=== PATIENT | male | born 1965 | race Caucasian/White ===

== ENCOUNTER 2024-06-19 06:26 | Day surgery (SDC) | payer OTHER, SELFPAY ==
[2024-06-06 14:11] VITALS: BMI 26.5
--- NOTE | 2024-06-07 13:56 | PTCARENOTE ---
Patients 06/06 ECG abnomrla- reviewed by Dr. Gibson- no additional interventions required.
[2024-06-19] VITALS (7 sets, daily range): BP systolic 109–135; BP diastolic 71–115; BMI 26.5
[2024-06-19] MEDS: TYLENOL 1000 MG PO (07:42)
[2024-06-19] MEDS: NORMOSOL-R/PLASMALYTE-A 1000 IV (07:42)
[2024-06-19] MEDS: HEPARIN 5000 UNITS SC (07:45)
--- NOTE | 2024-06-19 10:15 | W.IMMPOSTOP ---
Surgical Immed Post Op Note
-
Primary Surgeon: Winifred
Assisting: Jose BARTLETT
Pre-op Diagnosis: Bilateral inguinal hernias
Post-op Diagnosis: Same
Procedure Performed: Robot assisted laparoscopic repair bilateral inguinal hernias
Anesthesia Type: GETA
Specimen / Cultures: None
Estimated Blood Loss: 10cc
Complications: None immediate
Operative Findings: Bilateral indirect defects, small cord lipoma right, large cord lipoma left, B/L XL MID 3D max
--- NOTE | 2024-06-19 10:21 | OR.RPT ---
Addendum entered and electronically signed by Marcel Vitale MD 06/19/24 12:56:
Addendum: The assistance of Jose BARTLETT was required due to the complexity of the procedure. During the procedure she assisted with retraction, resection, and closure of the wound.
Original Note:
Operative Report
Operative Report
Primary Surgeon: Winifred
Assisting: Jose BARTLETT
Pre-op Diagnosis: Bilateral inguinal hernias
Post-op Diagnosis: Same
Procedure Performed: Robot assisted laparoscopic repair bilateral inguinal hernias
Anesthesia Type: GETA
Specimen / Cultures: None
Estimated Blood Loss: 10cc
Complications: None immediate
Operative Findings: Bilateral indirect defects, small cord lipoma right, large cord lipoma left, B/L XL MID 3D max
Date of surgery: 06/19/24
Indications:� This 59M developed a symptomatic right inguinal hernia. On exam a contralateral hernia was identified. He asked that we fix both sides today. Robot assisted laparoscopic repair of left inguinal hernias was planned.
Description of procedure:� The patient was taken to the operating room and positioned into supine position. The patient�s abdomen was prepped and draped in standard sterile fashion. Horn placed. A time-out was completed verifying correct patient,
procedure, site, positioning, and implants and special equipment prior to beginning this procedure.
A stab incision was made in the left upper quadrant, a Veress needle was inserted and proper position was confirmed by aspiration and saline drop test. Following this, pneumoperitoneum was created with insufflation of carbon dioxide to 12 mmHg. Then
a 8mm robotic trocar was inserted above and to the left of the umbilicus. A laparoscope was inserted and the area of initial trocar entry and Veress needle placement were both inspected and no injuries were found. Two 8mm trocars were then placed
lateral to the rectus sheath under direct visualization.
Both inguinal regions were inspected and the median umbilical ligament, medial umbilical ligament, and lateral umbilical fold were identified. Attention was turned to the right groin. The peritoneum was incised transversely above the defect and a
flap was developed in the caudad direction. Az�s ligament was identified ultimately dissected to its junction with the iliac vein and the space of Retzius was developed bluntly. The dissection was continued inferiorly to the iliopubic tract,
with care taken to avoid injury to the femoral branch of the genitofemoral nerve and the lateral femoral cutaneous nerve. The cord structures were parietalized.
The direct space was inspected and a hernia defect was not identified. The femoral space was inspected no defect was identified. The indirect space was inspected and a hernia was identified and reduced by gentle traction. The canal was inspected and
a small cord lipoma was identified and reduced.
Attention was turned to the left groin and the above process was repeated. An indirect defect was identified and reduced by gentle traction. A large cord lipoma was reduced as well.
Extra large right and left MID 3D max mesh was passed through a trocar. The mesh was placed into the preperitoneal space and moved into position to lay flat and completely cover the direct, indirect, and femoral spaces with overlap at the midline.
The mesh was secured into place using 2-0 vicryl suture to Az�s ligament medially. Care was taken to avoid the inferolateral triangles containing the iliac vessels and genital nerves. The peritoneal flap was closed over the mesh and secured with
2-0 monocryl stratafix suture in similar positions of safety. A 14g angiocath was used to decompress the preperitoneal space revealing good seal and all mesh in good position without folding or curling.
After ensuring adequate hemostasis, the trocars were removed and the pneumoperitoneum allowed to escape. The trocar incisions were closed at the skin level using 4-0 monocryl and topical skin adhesive. All counts were correct and the patient
tolerated the procedure well and was taken to the postanesthesia care unit in stable condition.
== END 2024-06-19 12:15 | disposition home or self-care (01) ==
LOC: SDS 06:26
PROVIDERS: ATTENDING PHYSICIAN Surgery; FAMILY PHYSICIAN Student in an Organized Health Care Education/Training Program
DX: K40.20 Bilateral inguinal hernia, without obstruction or gangrene, not specified as recurrent (principal)
CPT/HCPCS: 49650; 36415; 93005; C1781